=== PATIENT | male | born 1970 | race Caucasian/White ===

== ENCOUNTER → 2018-12-26 | Outpatient (CLI) | payer OTHER, SELFPAY ==
--- NOTE | 2018-12-26 15:20 | RAD_ITS ---
STUDY: X-RAY - LUMBAR SPINE REASON FOR EXAM: Male, 48 years old. Back pain TECHNIQUE: 4 view(s) of the lumbar spine were obtained. COMPARISON: 15 July 2015 FINDINGS: Lumbar spine is aligned. Incomplete segmentation of T11-T12. This questionable loss of height of central L1. However, this area is partially obscured and the vertebral bodies difficult to visualize. There is superior concave deformity of the L2 and L3 endplates, likely chronic degenerative. There is no acute fracture. SI joints are normal. RAD/L/S Spine Min 4 Views IMPRESSION: Possible degenerative changes and/or compressive deformity of L1. Difficult to characterize. Recommend definitive assessment with CT Electronically Signed: Tiana William, at 16:17 EDT Tel , Service support ,
--- NOTE | 2018-12-26 15:21 | RAD_ITS ---
STUDY: X-RAY - RIGHT KNEE REASON FOR EXAM: Male, 48 years old. Pain TECHNIQUE: 4 view(s) of the knee. COMPARISON: None. FINDINGS: Normal visualized distal femur. Normal visualized proximal tibia and fibula. Normal proximal tibiofibular articulation. Normal medial femorotibial compartment. Normal lateral femorotibial compartment. Normal patellofemoral articulation. The soft tissue structures are unremarkable. RAD/Knee 4 or More Views IMPRESSION: Normal x-ray examination of the knee. Electronically Signed: Tiana William, at 16:07 EDT Tel , Service support ,
--- NOTE | 2018-12-26 15:22 | RAD_ITS ---
STUDY: X-RAY - LEFT KNEE REASON FOR EXAM: Male, 48 years old. Pain TECHNIQUE: 4 view(s) of the knee. COMPARISON: None. FINDINGS: Normal visualized distal femur. Normal visualized proximal tibia and fibula. Normal proximal tibiofibular articulation. Normal medial femorotibial compartment. Normal lateral femorotibial compartment. Normal patellofemoral articulation. The soft tissue structures are unremarkable. RAD/Knee 4 or More Views IMPRESSION: Normal x-ray examination of the knee. Electronically Signed: Tiana William, at 16:04 EDT Tel , Service support ,
== END | disposition home or self-care (01) ==
LOC: HPRAD 15:16
PROVIDERS: Family Provider Internal Medicine; PCP Internal Medicine; Referring Provider Internal Medicine; Visit Provider Internal Medicine
DX: M25.50 Pain in unspecified joint (principal)
CPT/HCPCS: 72110; 73564

== ENCOUNTER → 2019-01-05 | Outpatient (CLI) | payer OTHER, SELFPAY ==
--- NOTE | 2019-01-05 07:58 | CT_ITS ---
STUDY: CT LUMBAR SPINE WITHOUT CONTRAST REASON FOR EXAM: Male, 48 years old. Low back pain with sciatica RADIATION DOSAGE (If Supplied By Facility): CTDIvol = ( 14.17 ) mGy, DLP = ( 415.41 ) mGycm TECHNIQUE: The patient was scanned in a multi detector CT scanner. High resolution transaxial imaging was performed. Sagittal and coronal images were reconstructed. Individualized dose optimization techniques were used for this CT. COMPARISON: None FINDINGS: Normal lumbar lordosis. No focal listhesis or significant scoliosis. No vertebral body fracture. No pars defect. Transverse and spinous processes are intact. Intervertebral disc spaces are preserved. Facet joints are normal. Normal vertebrae of the lumbar spine. L1-2: Normal endplates. Normal disc height and morphology. Normal bilateral facet joints. Normal central canal and bilateral lateral recesses. Normal bilateral intervertebral neural foramina. L2-3: Normal endplates. Normal disc height and morphology. Normal bilateral facet joints. Normal central canal and bilateral lateral recesses. Normal bilateral intervertebral neural foramina. L3-4: Normal endplates. Normal disc height and morphology. Normal bilateral facet joints. Normal central canal and bilateral lateral recesses. Normal bilateral intervertebral neural foramina. L4-5: Normal endplates. Mild diffuse disc bulge. Mild ligamentum flavum thickening. No neural foraminal canal narrowing. Mild spinal canal stenosis. L5-S1: Normal endplates. Normal disc height and morphology. Normal bilateral facet joints. Normal central canal and bilateral lateral recesses. Normal bilateral intervertebral neural foramina. Normal visualized paraspinous soft tissue structures. CT/Spine Lumbar without Contrast IMPRESSION: 1. No evidence of acute injury to the lumbar spine. 2. Mild degenerative disc disease at L4-L5, resulting in mild spinal canal stenosis Electronically Signed: Bradley Andujar MD at 4:55 EDT Tel , Service support ,
--- NOTE | 2019-01-05 07:59 | RAD_ITS ---
STUDY: X-RAY - ESOPHAGUS (BARIUM SWALLOW) WITH FLUOROSCOPY REASON FOR EXAM: Male, 48 years old. Chronic dysphasia. TECHNIQUE: 11 view(s) of the esophagus were obtained following swallowing of barium. FLUOROSCOPY TIME (if supplied): (0:22) minutes/seconds COMPARISON: None. FINDINGS: There is no demonstrated esophageal foreign body. There is no demonstrated stricture or mucosal abnormality. Normal gastroesophageal junction, without a demonstrated hiatal hernia. The patient ingested a 12 mm tablet of barium without any difficulty. Normal visualized aortic arch and descending thoracic aorta. Normal visualized pulmonary parenchyma. Normal visualized osseous structures of the thorax. RAD/Esophagus Only IMPRESSION: Normal plain film x-ray examination (barium swallow) of the esophagus. Electronically Signed: Gt Jasmine, at 12:55 EDT , Service support ,
== END | disposition home or self-care (01) ==
PROVIDERS: Family Provider Internal Medicine; PCP Internal Medicine; Referring Provider Internal Medicine; Visit Provider Internal Medicine
DX: R13.10 Dysphagia, unspecified (principal); R93.7 Abnormal findings on diagnostic imaging of other parts of musculoskeletal system
CPT/HCPCS: 72131; 74220

== ENCOUNTER → 2019-02-10 | Outpatient (CLI) | payer OTHER, SELFPAY ==
[2018-01-11 12:40] VITALS: BMI 27.8
--- NOTE | 2019-02-10 10:44 | EGD_PTH ---
PATIENT: HAROLDO ALMEIDA LOC: [facility] U#:[id number] AGE/SX: 48/M ROOM: RE02/10/[address]: Dr. Sam Lam MD : 1970 BED: DIS: 02/10/2019 SPEC #: [id number] RECD: 02/10/19 15:22 STATUS: PIERRE MICHELE #: [id number] LINDSAY: 02/10/19 10:[address]: Sam Lam DEPT: SURGICAL PATHOLOGY RECD BY: Arlin Quezada ENTERED: 02/13/19 08:36 SP TYPE: EGD BIOPSY OT DR: Dr. Omaira Goldberg [facility] Tissues: Esophageal mucous membrane Procedures: PAS Fungus (control) Special Stain Group II Special Stain Group I Surgery Specimen Level IV Alcian Blue/PAS (control) HEADER OPERATION: EGD with biopsies PRE-OP DIAGNOSIS: Dysphagia TISSUE SUBMITTED: Esophageal biopsies, rule out Ahuja's, EE MICROSCOPIC DIAGNOSIS Esophageal biopsy: Fragments of gastroesophageal mucosa with ulceration, acute and chronic inflammation and changes consistent with eosinophilic esophagitis. Intestinal metaplasia (goblet cell metaplasia) is not identified. Special stain for fungi is negative for organisms; matched control is appropriate. See comment. BEAU:raheel 02/14/19 COMMENT Alcian blue/PAS stain with matched control is used in the evaluation of the specimen. Increased number of eosinophils (more than 20 per high power field) are noted, consistent with eosinophilic esophagitis. MICROSCOPIC DESCRIPTION Slides are reviewed. GROSS DESCRIPTION Received in fixative is one container labeled with the patient's name and designated esophageal biopsy. The specimen consists of multiple irregular fragments of light roman soft tissue that in aggregate measure 1.2 x 0.5 x 0.1 cm. The specimen is totally submitted in one cassette. / BEAU:raheel 02/13/19 TC:2 CPT: 30236, 26473, 97174
== END | disposition home or self-care (01) ==
LOC: LABSPEC 15:40
PROVIDERS: Family Provider Internal Medicine; PCP Internal Medicine; Referring Provider Internal Medicine Gastroenterology; Visit Provider Internal Medicine Gastroenterology
DX: R13.10 Dysphagia, unspecified (principal); K21.9 Gastro-esophageal reflux disease without esophagitis
CPT/HCPCS: 88305; 88312; 88313

== ENCOUNTER → 2019-04-03 | Outpatient (CLI) | payer OTHER, SELFPAY ==
--- NOTE | 2019-04-03 15:27 | RAD_ITS ---
STUDY: X-RAY CHEST REASON FOR EXAM: Male, 48 years old. Cough, shortness of breath TECHNIQUE: PA and lateral views of the chest. COMPARISON: None. FINDINGS: The lungs are clear and expanded. There is no demonstrated pleural abnormality. Normal size heart. Normal mediastinum and dahiana. Normal visualized pulmonary arteries. Normal visualized aortic arch and descending thoracic aorta. Normal visualized thoracic spine. Normal visualized ribs, clavicles, and shoulders. There is no demonstrated abnormality of the visualized soft tissue structures of the upper abdomen. RAD/Chest PA and Lateral IMPRESSION: Normal x-ray examination of the chest. Electronically Signed: Jignesh Villalpando MD at 15:54 EDT Tel , Service support ,
== END | disposition home or self-care (01) ==
LOC: HPRAD 15:20
PROVIDERS: Family Provider Internal Medicine; PCP Internal Medicine; Referring Provider Nurse Practitioner; Visit Provider Nurse Practitioner
DX: R05 Cough (principal)
CPT/HCPCS: 71046

== ENCOUNTER 2024-12-05 18:00 | Outpatient (RCR) | payer BC, SELFPAY ==
--- NOTE | 2024-11-16 18:50 | HP.PTEVAL ---
Patient's Visit Information Visit Information Visit Information: HAROLDO ALMEIDA is a 54 year old M referred to Physical Therapy by Dr. Omaira Goldberg DO with a diagnosis of cervical radiculopathy. Date of Evaluation: 11/16/24 Physical Therapist: Cleveland Matos, DPT, OCS, CSCS Visit Plan Frequency: 2x /Week Duration: 4-6 Weeks Plan: Pt presenting without obvious reason or cause. some neck stiffness but no pain or asymmetrical limitations. Numbness consistent with ulnar nerve at elbow but no pattern noticed by patient. I gave him cervical flexion 15x 5 secon hold 3x/day and throughout day as well as to stop when he gets numb and try to notice a pattern. We will f/u in two weeks to recheck presentation and see if there is a pattern. MRI pending and appropriate. may treat up to 2x/week for 2-4 weeks if needed with cervical stretches and ROM(flexion bias), STM, MH, and cervical postural strength if helpful. Pt is wanting answers today that I cannot give him and looking forward to MRI. He is to monitor for any other symptoms that might need to take him to ER(dizzy/RAMIREZ) but has not had any lately outside of the arm numbness and that is not creating any funcitonal deficits at this point. Subjective Subjective: L arm numbness, no other symptoms. Happened 6 months ago one time and went away. 3 weeks ago it came back with RAMIREZ and sweating and sent to ER but did not go. It is still numb. Went to doctor last week for the arm numbness. Neck x ray was negative adn slight OA. Did blood work adn urine samples and no results yet. Ordered MRI but not heard yet. Numbness is intermittent. For no apparent reason, 60% numb. 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 Missed a couple days due to doctoring . 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 Not noticing weaknessNumbness is 45 digits only. Objective Objective: reflexes bi adn tri 2/3 UT mild tight as are scalenes, no pain. sensataion UE WNL to gross light touch B. strength UE 4+/5 without myotomal probems, B manager global communications about 160#. Hand intrinsics are strong. UE AROM WFL and without pain or numbness. cervical aROM 50 ext wihtout pain, 78 R rotationa dn 80 L rotation with symptoms. SB symmetrical, flexion normal. - c/s compression tinels makes both sides tingle equally, nerve stretch ulnar causes tightness mid arm L and wrist R Repeated retraction adn ext and protrusion have no change to nonexistent symptoms sitting in chair today. Balance/Special Test Scores Oswestry Neck Score: 1 Goals Goal 1:: abolish tingly numb in L UE Goal Time Frame: 4-6 Weeks Rehabilitation Potential Physical Therapy Diagnosis: tingly R arm elbow down intermittent of unknown origin. Rehabilitation Potential: Questionable Anticipated Interventions Patient/Client Instruction: Educate patient on: Condition and Plan of Care For the Purpose of:: To decrease pain, To increase ROM, To improve nutrient delivery to tissue, To improve muscle performance and motor function and To increase tolerance to activity/condition/position Therapeutic Exercise to Include: Strength training, Postural training, Flexibilty training, Passive ROM and Active ROM For the Purpose of:: To decrease pain, To increase ROM, To improve nutrient delivery to tissue, To increase tolerance to activity/condition/position and To improve ability of physical actions for home/community/work/leisure Manual Therapy Techniques to Include: Passive ROM and Soft tissue mobilization For the Purpose of:: To decrease pain and To increase ROM Text: Thank you for the opportunity to evaluate your patient. For Medicare and Medicare HMO plans, please review the plan of care and approve it. It will need to be FAXED BACK to us at [phone] for Medicare purposes. For Medicare only, by signing this I certify the plan of care. Please let me know if there are questions or concerns regarding this plan of care. Physician Signature: Date:
--- NOTE | 2024-12-19 10:40 | HP.PTDCSUM_ITS ---
Discharge Summary D/C summary: It has been my pleasure to treat HAROLDO ALMEIDA referred by Dr. Omaira Goldberg DO, with the diagnosis of cervical radiculopathy for a total of 2 visit(s). Discharge Date: 12/19/24 Please see the following information for a summary of their discharge status. Subjective Subjective: No MRI yet, failed to go through so far. Numbness persists L hand 4/5 digit. Worse with holding a wrench or steering wheel, feels better with hand extended and worse using wrench or clenching. Tried cervical flexion and extension without improvement but no neck signs to begin with. No other symptoms. Overall Improvement % Improvement: 0 Objective Objective/Function: Full neck ROM to 80 B rotation and 16 SB and 75 extension without pain or dysfunction in neck or change to numbness. + tinels' at L ulnar nerve in elbow and that recreates his numbness. elbow and wrist and shoulder AROM WFL and no obvious weakness. Goals Goal 1:: abolish tingly numb in L UE Plan Plan: Pt stopped in to cancel all appointments as he is holding on PT currently due to having a procedure on his neck(message from front office director) I will discharge him at this time at his request. D/C Information Discharge Comments: see POC above. d/c sentence: If there are questions or concerns regarding this patient's physical therapy, please feel free to call me at [phone]. Thank you for the referral of this patient. Sincerely, Cleveland Matos, DPT, OCS, CSCS Balance/Gait/Functional tests Balance/Special Test Scores Oswestry Neck Score: 1 Improvement % Improvement: 0
--- NOTE | 2024-12-19 10:40 | HP.PTDCSUM_ITS ---
Discharge Summary D/C summary: It has been my pleasure to treat HAROLDO ALMEIDA referred by Dr. Omaira Goldberg DO, with the diagnosis of cervical radiculopathy for a total of 2 visit(s). Discharge Date: 12/19/24 Please see the following information for a summary of their discharge status. Subjective Subjective: No MRI yet, failed to go through so far. Numbness persists L hand 4/5 digit. Worse with holding a wrench or steering wheel, feels better with hand extended and worse using wrench or clenching. Tried cervical flexion and extension without improvement but no neck signs to begin with. No other symptoms. Overall Improvement % Improvement: 0 Objective Objective/Function: Full neck ROM to 80 B rotation and 16 SB and 75 extension without pain or dysfunction in neck or change to numbness. + tinels' at L ulnar nerve in elbow and that recreates his numbness. elbow and wrist and shoulder AROM WFL and no obvious weakness. Goals Goal 1:: abolish tingly numb in L UE Plan Plan: Pt stopped in to cancel all appointments as he is holding on PT currently due to having a procedure on his neck(message from front desk administrator) I will discharge him at this time at his request. D/C Information Discharge Comments: see POC above. d/c sentence: If there are questions or concerns regarding this patient's physical therapy, please feel free to call me at [phone]. Thank you for the referral of this patient. Sincerely, Cleveland Matos, DPT, OCS, CSCS Balance/Gait/Functional tests Balance/Special Test Scores Oswestry Neck Score: 1 Improvement % Improvement: 0
== END 2024-12-05 19:00 | disposition home or self-care (01) ==
LOC: PT 18:00
PROVIDERS: PCP Internal Medicine; Referring Provider Internal Medicine; Visit Provider Internal Medicine
DX: M54.2 Cervicalgia (principal); M54.10 Radiculopathy, site unspecified
CPT/HCPCS: 97162; 97530

== ENCOUNTER → 2025-01-22 | Outpatient (CLI) | payer BC, SELFPAY ==
--- NOTE | 2025-01-22 07:20 | MRI_ITS ---
PROCEDURE: BRAIN WITHOUT CONTRAST 01/22/2025 REASON FOR EXAM: DIZZINESS,LT ARM NUMBNESS, MINOR HEAD TRAUMA TECHNIQUE: Multiplanar and multisequential MRI of the brain was performed without contrast. COMPARISON: None available. FINDINGS: Ventricular and sulcal size and configuration are within normal limits. Small regions of cortical/subcortical T2 FLAIR hyperintense signal abnormality in the posterolateral right occipital lobe, indeterminate but likely mild gliotic change which may be related to traumatic brain injury such as mild parenchymal contusions, versus subacute-chronic ischemia. No abnormal restricted diffusion, and no susceptibility signal to indicate hemorrhage. No extra-axial collection or mass-effect. There are a few additional scattered small foci of T2 FLAIR hyperintensity elsewhere in the cerebral white matter, and one focus in the right cerebellar hemisphere which are nonspecific but likely reflective of mild chronic microangiopathic changes. Major intracranial vascular flow voids are preserved. Orbital contents appear normal. No mastoid effusions. Peripheral mucosal thickening within the right frontal sinus and anterior ethmoids, and small right maxillary mucous retention cyst/polyp. MRI/Brain without Contrast IMPRESSION: 1. No acute intracranial abnormality. 2. Small areas of cortical/subcortical T2 FLAIR hyperintensity in the right occ ipital lobe, likely nonspecific gliotic change and may be sequelae of previous traumatic brain injury, or possibly related to suba cute-chronic ischemia. No hemorrhage. 3. Mild scattered foci of leukoaraiosis elsewhere, with one focus in the right cerebellum. Reading Location: [id number]
== END | disposition home or self-care (01) ==
PROVIDERS: PCP Internal Medicine; Referring Provider Internal Medicine; Visit Provider Internal Medicine
DX: R20.0 Anesthesia of skin (principal); R42 Dizziness and giddiness
CPT/HCPCS: 70551

== ENCOUNTER → 2025-01-31 | Outpatient (CLI) | payer BC, SELFPAY ==
--- NOTE | 2025-01-31 14:37 | NEURO ---
NCS and/or EMG Patient Report Ordering Doctor: Omaira Goldberg DATE OF SERVICE: 01/31/25 Bharat presents with complaints of numbness in the left hand. Electrodiagnostic findings: Left median motor nerve demonstrates prolonged latency with normal amplitude and conduction velocity. Left ulnar motor response is within normal limits, including conduction across the elbow. Normal left median and left ulnar F?wave. Prolonged left median sensory latency at the wrist. Normal ulnar and radial sensory responses. Needle EMG testing was performed in the left upper limb. All muscles tested showed no evidence of denervation with normal motor unit action potentials. Electrodiagnostic impression: This is an abnormal study. 1. Electrodiagnostic findings suggestive of left-sided median mononeuropathy. This consistent with a mild left carpal tunnel syndrome. Multi Select Codes Neurology Neurology Interp Codes: 80845-40 Musc test done w/n test comp (interp) and 72499-55 Nrv cndj tst 5-6 studies (interp)
--- NOTE | 2025-01-31 14:37 | NEURO ---
NCS and/or EMG Patient Report Ordering Doctor: Omaira Goldberg DATE OF SERVICE: 01/31/25 Bharat presents with complaints of numbness in the left hand. Electrodiagnostic findings: Left median motor nerve demonstrates prolonged latency with normal amplitude and conduction velocity. Left ulnar motor response is within normal limits, including conduction across the elbow. Normal left median and left ulnar F?wave. Prolonged left median sensory latency at the wrist. Normal ulnar and radial sensory responses. Needle EMG testing was performed in the left upper limb. All muscles tested showed no evidence of denervation with normal motor unit action potentials. Electrodiagnostic impression: This is an abnormal study. 1. Electrodiagnostic findings suggestive of left-sided median mononeuropathy. This consistent with a mild left carpal tunnel syndrome. Multi Select Codes Neurology Neurology Interp Codes: 89150-48 Musc test done w/n test comp (interp) and 06471-65 Nrv cndj tst 5-6 studies (interp)
== END | disposition home or self-care (01) ==
PROVIDERS: PCP Internal Medicine; Referring Provider Internal Medicine; Visit Provider Internal Medicine
DX: R20.0 Anesthesia of skin (principal)
CPT/HCPCS: 95886; 95909

== ENCOUNTER 2025-06-18 10:11 | Observation (INO) | payer BC, SELFPAY ==
[2025-06-18] VITALS (11 sets, daily range): BP systolic 121–150; BP diastolic 85–96; PULSE 62–81; RESP 12–18; TEMP 36.4–36.8; O2SAT 95–100; BMI 28.1; BMI 28.0
--- NOTE | 2025-06-18 10:16 | CT_ITS ---
PROCEDURE: STROKE BRAIN/HEAD WITHOUT CONT 06/18/2025 REASON FOR EXAM: NEURO DEFICIT, ACUTE, STROKE SUSPECTED TECHNIQUE: Procedure Code: CTBR.ST Modality: CT Procedure: STROKE BRAIN/HEAD WITHOUT CONT Coronal and Sagittal reconstruction series were provided. One or more dose reduction techniques were used (e.g., Automated exposure control, adjustment of the mA and/or kV according to patient size, use of iterative reconstruction technique. RADIATION DOSE SUMMARY: CTDlvol: 94 mGy DLP: 1851 mGycm COMPARISON: January 22, 2025 FINDINGS: Brain: There is no evidence of hemorrhage, acute ischemia or mass. No extra- axial fluid collection, midline shift or mass effect. CSF Spaces: Mild generalized cerebral atrophy Sinuses/Mastoids: Small mucous retention cyst or polyp inferior right maxillary sinus. Bones: No fracture CT/STROKE Brain/Head without Cont IMPRESSION: No evidence of acute ischemia at this time. Stroke Alert: No evidence of ischemia. The critical findings in the findings and impression above were relayed directl y by me by telephone to charge nurse on 06/18/2025 at 10:34 am with readback verification. Reading Location: [id number]
--- NOTE | 2025-06-18 10:16 | EKG12_ITS ---
Test Reason : Blood Pressure : */* mmHG Vent. Rate : 71 BPM Atrial Rate : 71 BPM P-R Int : 164 ms QRS Dur : 90 ms QT Int : 400 ms P-R-T Axes : 30 -38 7 degrees QTcB Int : 434 ms Normal sinus rhythm Left axis deviation Abnormal ECG Confirmed by Jose Chan (Tracee), editor managing newspaper MAHENDRA HAHN ([id number]) on 06/19/2025 11:02:37 AM Also confirmed by Jose Chan ([id number]), editor managing newspaper MAHENDRA HAHN ([id number]) on 06/20/2025 11:12:13 AM Referred By: BUBBA Confirmed By: Jose Chan
--- NOTE | 2025-06-18 10:17 | CT_ITS ---
PROCEDURE: STROKE CTA HEAD AND NECK W/CON 06/18/2025 REASON FOR EXAM: NEURO DEFICIT, ACUTE, STROKE SUSPECTED TECHNIQUE: Procedure Code: CTCTA.ST.HN Modality: CT Procedure: STROKE CTA HEAD AND NECK W/CON Multidetector CT angiography of the head and neck with intravenous contrast was performed with multiplaner and maximum intensity projection (MIP) reconstructions. CONTRAST: Isovue 370 VOLUME: 96 mL One or more dose reduction techniques were used (e.g., Automated exposure control, adjustment of the mA and/or kV according to patient size, use of iterative reconstruction technique). RADIATION DOSE SUMMARY: DLP: 934.69 mGycm COMPARISON: None available. FINDINGS: CTA NECK: Standard three-vessel configuration of the aortic arch. The origins of the vessels arising from the aortic arch are patent without high-grade stenosis. Right carotid artery: The right common carotid artery is patent without high- grade stenosis. Atheromatous plaque at the carotid bulb contributes to 35-40% stenosis at the origin of the right cervical internal carotid artery. The right cervical internal carotid artery is otherwise patent without hemodynamically significant stenosis. Left carotid artery: The left common carotid artery is patent without high-grade stenosis. Atherosclerotic calcification at the origin of the left cervical internal carotid artery without significant stenosis. The left cervical internal carotid artery is patent without hemodynamically significant stenosis. Cervical vertebral arteries: The cervical vertebral arteries are patent without high-grade stenosis. Assessment for carotid stenosis is performed utilizing NASCET criteria. NASCET carotid stenosis criteria: 0% - none, 1-49% - mild, 50-69% - moderate, 70-89% - severe, 90-99% - critical. % ICA stenosis = (normal distal cervical ICA diameter - narrowest cervical ICA diameter / normal distal cervical ICA diameter) x 100. CTA Head: Atherosclerotic calcification of the cavernous carotid arteries. The petrous, cavernous, and intracranial internal carotid arteries are patent without high-grade stenosis. The proximal anterior cerebral arteries are patent without high-grade stenosis. The proximal middle cerebral arteries are patent without high-grade stenosis. The intradural vertebral arteries are patent without high-grade stenosis. The basilar artery is patent without high-grade stenosis. The proximal posterior cerebral arteries are patent without high-grade stenosis. No dominant intracranial aneurysm or high flow arteriovenous malformation is identified. Ancillary findings: None. CT/STROKE CTA Head AND Neck W/Con IMPRESSION: 1. No high-grade arterial stenosis, aneurysm, or arteriovenous malformation. 2. Mild spinal canal stenosis at the origin of the right cervical internal escalante tid artery. Reading Location: [id number]
--- NOTE | 2025-06-18 10:17 | ED.VIS.STROK ---
HPI History of Present Illness Chief Complaint: Stroke Alert Narrative Narrative: Patient is a 54-year-old male presenting to the emergency department for dizziness and right sided facial numbness. Patient has a past medical history of nonspecific dizziness and a possible CVA. Patient states that at 9 PM last evening when he went to bed he had no symptoms. He states he woke up at 2 AM and was dizzy and had to use the wall to walk to the restroom. He states when he is have the dizziness in the past that has come and gone however today it is constant. He endorses right sided facial numbness. Denies any visual changes, slurred speech, numbness or weakness in his extremities. Denies any recent falls or head trauma. He is not on any oral anticoagulation. [facility] Medical History GERD with esophagitis Vitamin B12 deficiency Vitamin D deficiency Hyperlipidemia Carpal tunnel syndrome of left wrist Leukoaraiosis Cerebrovascular small vessel disease Allergic rhinitis Eosinophilic esophagitis Irritable bowel syndrome with diarrhea Hemorrhoid Arthralgia of multiple sites Degenerative lumbar spinal stenosis Cervical radiculopathy Cervical pain Back pain, lumbosacral Left tennis elbow Kidney stone on right side Elevated blood pressure reading Low blood pressure reading Cough Witnessed episode of apnea Dysphagia Left arm numbness Fatigue Abnormal glucose tolerance test Hyperglycemia Food allergy GERD (gastroesophageal reflux disease) Thrombosed hemorrhoids Home Medications ?Medication ?Instructions ?Recorded ?Last Taken ?Type aspirin 81 mg tablet 81 mg PO DAILY 06/18/25 06/18/25 History lisinopril 5 mg tablet 5 mg PO PRN 06/18/25 Unknown History Allergy/AdvReac Type Severity Reaction Status Date / Time No Known Allergies Allergy Verified 06/18/25 10:13 Family History Father Heart disease Myocardial infarction CVA (cerebral vascular accident) Mother Hypertension Dementia Surgical History No pertinent past surgical history Social History household members: other details: parents current occupational status: employed 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 No acute distress. Well appearing, nontoxic. HEENT: Head is normocephalic and atraumatic, sinuses nontender, pupils equal round and reactive. Nares are patent. Oropharynx and throat exams normal. Neck: Supple without lymphadenopathy nontender Cardiovascular: Regular rate and rhythm, no murmurs. No rubs or gallops. Normal S1 and S2 Respiratory: Clear to auscultation bilaterally. No wheezes, rales, rhonchi Abdominal: Soft and nontender. Normal bowel sounds. No guarding or rebound. Nonsurgical abdomen Extremities: No tenderness. No bruising. Normal range of motion. Normal sensation. Skin: No rash or redness. Neurologic: Normal finger to nose testing. Ataxic gait. The rest of the physical exam is unremarkable Const Vital Signs: 06/18/25 10:13 06/18/25 10:16 06/18/25 10:16 Temperature 97.8 F Temperature Source Temporal Pulse Rate 80 81 Respiratory Rate 16 14 Blood Pressure 150/93 H 136/89 H Blood Pressure Mean 112 104 Pulse Ox 97 98 100 Oxygen Delivery Method Room Air Room Air Room Air 06/18/25 10:46 06/18/25 11:16 06/18/25 11:50 Temperature Temperature Source Pulse Rate 78 68 69 Respiratory Rate 17 15 14 Blood Pressure 139/85 H 138/87 H 121/94 H Blood Pressure Mean 103 104 103 Pulse Ox 98 98 97 Oxygen Delivery Method Room Air Room Air Room Air 06/18/25 11:59 06/18/25 12:03 Temperature 97.8 F Temperature Source Pulse Rate 69 66 Respiratory Rate 14 12 Blood Pressure 121/94 H 131/96 H Blood Pressure Mean 103 107 Pulse Ox 97 99 Oxygen Delivery Method Room Air MDM MDM MDM Narrative Medical decision making narrative: Patient is a 54-year-old male presenting to the emergency department for dizziness and right sided facial numbness with a last known well of 9 PM last evening. He is on no oral anticoagulation. Stroke team was called in triage by nursing staff prior to my evaluation. On my evaluation patient has an NIH of 1 for the sensation deficit on his right sided face. Patient transferred to CT for CT and CTA of the head and neck. Patient was evaluated by [facility] telestroke doc, Dr. Pako Pascual, who agreed with the assessment and recommended aspirin and admission for MRI and neurologic consultation. EKG shows normal sinus rhythm with left axis deviation. There is no ischemic changes or dysrhythmia noted. CBC with no leukocytosis and hemoglobin is 16.9. BMP with no significant abnormalities. Troponin and reflex within normal limits. CT of the brain with no evidence of acute ischemia. CT of the head and neck with no high-grade arterial stenosis, aneurysm or AVM. Patient updated on the negative workup and need for admission for MRI. Given oral aspirin. Admitted to Dr. Rehman for further workup of possible stroke. Clinical impression Strokelike symptoms History & Record Review Discussion w/independent historian: Patient Lab Data Attestation: I reviewed the patient's lab results. Labs: Laboratory Results - last 24 hr 06/18/25 06/18/25 10:16 12:13 WBC 7.2 RBC 5.48 Hgb 16.9 H Hct 50.6 MCV 92.3 MCH 30.8 MCHC 33.4 RDW Std Deviation 45.3 H RDW Coeff of Stephen 13.3 Plt Count 559 H MPV 9.6 Immature Gran % (Auto) 0.700 Neut % (Auto) 60.7 Lymph % (Auto) 24.9 [place] % (Auto) 9.0 Eos % (Auto) 3.5 Baso % (Auto) 1.2 H Absolute Neuts (auto) 4.4 Absolute Lymphs (auto) 1.80 Nucleated RBC % 0 PT 12.4 INR 0.9 APTT 25.3 Sodium 140 Potassium 4.2 Chloride 103 Carbon Dioxide 27.2 Anion Gap 10 BUN 14 Creatinine 1.00 Estim Creat Clear Calc 101.79 Est GFR (MDRD) Non-Af 90 BUN/Creatinine Ratio 14.0 Glucose 102 H Calcium 9.7 Troponin T High Sens 7 Troponin T Hi Sens 2 Hr 8 Radiography Diagnostic Testing: Clinical Impression(s) from Imaging Studies Brain CT 06/18/25 10:16 IMPRESSION: No evidence of acute ischemia at this time. Stroke Alert: No evidence of ischemia. The critical findings in the findings and impression above were relayed directly by me by telephone to charge nurse on 06/18/2025 at 10:34 am with readback verification. Reading Location: [id number] Head/Neck CTA 06/18/25 10:17 IMPRESSION: 1. No high-grade arterial stenosis, aneurysm, or arteriovenous malformation. 2. Mild spinal canal stenosis at the origin of the right cervical internal carotid artery. Reading Location: [id number] Discharge Plan Disposition Disposition: Acute Care Hospital [facility] Discharge Date/Time: 06/18/25 12:35 NIHSS NIHSS 1a. Level of Consciousness: 0 - Alert; keenly responsive 1b. LOC Questions: 0 - Answers BOTH questions correctly 1c. LOC Commands: 0 - Performs BOTH tasks correctly 2. Best Gaze: 0 - Normal 3. Visual: 0 - No visual loss 4. Facial Palsy: 0 - Normal symmetrical movements 5a. Left Arm: 0 - No drift; arm holds 90 (or 45) degrees for full 10 seconds 5b. Right Arm: 0 - No drift; arm holds 90 (or 45) degrees for full 10 seconds 6a. Left Le - No drift; leg holds 30-degree position for full 5 seconds 6b. Right Le - No drift; leg holds 30-degree position for full 5 seconds 7. Limb Ataxia: 0 - Absent 8. Sensory: 1 - [id number]-eh-[id number] sensory loss; 9. Best Language: 0 - No aphasia; normal 10. Dysarthria: 0 - Normal 11. Extinction and Inattention: 0 - No abnormality Total: 1 Stroke Questions Stroke Team Activated: Yes Reviewed Inclusion/Exclusion criteria: Yes IV Thrombolytic Administered: No
[2025-06-18 10:28] LABS: Hematocrit 50.6 % (40-54); Hemoglobin 16.9 g/dL (13.0-16.5); Immature Granulocytes Count 0.050 X10^3/uL (0.0-0.0); Mean Corp Hgb Conc 33.4 g/dL (32-36); Mean Corpuscular Volume 92.3 fL (80-94); Mean Platelet Vol. 9.6 fl (6.2-12.0); NRBC Flagged by Analyzer 0 % (0-5); Platelet Count 559 K/mm3 (150-450); RBC Distribution Width CV 13.3 % (11.6-14.6); RBC Distribution Width SD 45.3 fl (35.1-43.9); Red Blood Count 5.48 M/mm3 (4.6-6.2); White Blood Count 7.2 K/mm3 (4.4-11.0)
[2025-06-18 10:42] LABS: Prothrombin Time (Protime)PT. 12.4 SECONDS (11.7-14.9)
[2025-06-18 10:43] LABS: Partial Thromboplast Time 25.3 Seconds (24.1-36.2)
[2025-06-18 10:56] LABS: Troponin T High Sensitivity 7 ng/L (<=22)
[2025-06-18 10:57] LABS: Anion Gap 10 (5-15); BUN 14 mg/dL (4-19); BUN/Creat Ratio 14.0 RATIO (10-20); Calcium,Total 9.7 mg/dL (7.6-11.0); Carbon Dioxide 27.2 mmol/L (21.0-32.0); Chloride 103 mmol/L (98-108); Estimated Creatinine Clearance 101.79 ml/min (50-250); Glucose 102 mg/dL (70-99); Potassium 4.2 mmol/L (3.3-5.1)
--- NOTE | 2025-06-18 12:29 | MRI_ITS ---
PROCEDURE: BRAIN WITHOUT CONTRAST 06/18/2025 REASON FOR EXAM: VERTIGO. RIGHT FACIAL PARESTHESIA TECHNIQUE: Procedure Code: MRIBR Modality: MR Procedure: BRAIN WITHOUT CONTRAST Multiplanar and multisequence images were obtained. COMPARISON: June 18, 2025 FINDINGS: Brain: Patchy foci of encephalomalacia are shown at the right inferior cerebellar hemisphere. No evidence of acute ischemia. Ventricles: Normal. Major Intracranial Vessels: Correlate with the recent CT angiogram Sinuses: Mild mucosal thickening right frontal sinus and bilateral anterior ethmoid air cells. Mastoids: Clear MRI/Brain without Contrast IMPRESSION: No acute intracranial abnormality. Small patchy foci of encephalomalacia in th e right inferior cerebellar hemisphere. This is in the absence of significant chronic microvascular ischemic changes. Correlat e with the history of cardiac dysrhythmia to evaluate for a potential prior thromboembolic source. Reading Location: [id number]
--- NOTE | 2025-06-18 12:29 | ECHOD_ITS ---
Reason For Study Reason For Study: TIA/STROKE Procedure This was a 2D Doppler, Color Flow transthoracic echocardiogram. Exam performed portable in patient room. Left Ventricle Normal LV size. Normal left ventricular thickness. The estimated ejection fraction is 60???65 %. Normal diastology for age. Right Ventricle Normal RV size. Normal systolic function. Atria The left and right atria are normal. Bubble contrast study is negative for PFO/ASD. Mitral Valve Normal mitral valve. There is no mitral valve stenosis. Trivial mitral valve insufficiency. Tricuspid Valve Normal tricuspid valve. There is no tricuspid stenosis. Trivial tricuspid valve insufficiency. Aortic Valve Trisinus/trileaflet aortic valve. There is no aortic valve stenosis. No aortic valve insufficiency. Pulmonic Valve Normal pulmonic valve. There is no pulmonic valvular stenosis. Trivial pulmonic valve insufficiency. Great Vessels Mild ascending aortic aneurysm measured at 3.7 cm. Normal sized IVC that collapses with respiration/sniff. Pericardium/Pleural No pericardial effusion. Medication Performed a rapid injection of agitated mix of 9 cc saline and 1cc air to assess for atrial septal defect. MMode/2D Measurements & Calculations LVIDd: 5.0 cm IVSd: 0.99 cm asc Aorta Diam: 3.7 cm LVIDs: 3.1 cm LVPWd: 0.86 cm RVDd: 4.0 cm FS: 37.2 % LAV(MOD-bp): 48.9 ml LVAd ap4: 31.8 cm2 LVAd ap2: 33.6 cm2 LAV(MOD-bp) Indexed: 22.6 ml/m2 LVLd ap4: 9.2 cm LVLd ap2: 9.1 cm LAV(MOD-sp2): 34.6 ml EDV(MOD-sp4): 89.0 ml EDV(MOD-sp2): 101.2 ml LAV(MOD-sp4): 55.5 ml EDV(sp4-el): 92.9 ml EDV(sp2-el): 105.5 ml LVAs ap4: 16.8 cm2 LVAs ap2: 17.5 cm2 LVLs ap4: 7.7 cm LVLs ap2: 7.3 cm ESV(MOD-sp4): 31.9 ml ESV(MOD-sp2): 36.0 ml ESV(sp4-el): 31.2 ml ESV(sp2-el): 35.6 ml EF(MOD-sp4): 64.1 % EF(MOD-sp2): 64.4 % EF(sp4-el): 66.4 % SV(MOD-sp4): 57.0 ml SV(MOD-sp2): 65.2 ml EDV(MOD-bp): 97.0 ml SI(MOD-sp4): 26.4 ml/m2 SI(MOD-sp2): 30.2 ml/m2 ESV(MOD-bp): 34.4 ml EF(MOD-bp): 64.5 % SV(sp4-el): 61.7 ml LA A4 area: 20.4 cm2 LA dimension(2D): 3.6 cm RA A4 area: 15.1 cm2 TAPSE: 1.5 cm Time Measurements MV dec time: 0.21 sec Doppler Measurements & Calculations MV E max aldair: 59.5 cm/sec Lat Peak E' Aldair: 11.6 cm/sec Med Peak E' Aldair: 10.5 cm/sec MV A max aldair: 45.0 cm/sec E/E' lat: 5.1 E/E' med: 5.7 MV E/A: 1.3 MV dec slope: 286.7 cm/sec2 PA V2 max: 110.2 cm/sec ECHO/Echo Complete Interpretation Summary The estimated ejection fraction is 60???65 %. Normal LV size. Normal left ventricular thickness. Normal diastology for age. Mild ascending aortic aneurysm measured at 3.7 cm. Bubble contrast study is negative for PFO/ASD. Ordering Physician: Cleveland Rehman Referring Physician: Omaira Goldberg Performed By: Jimmie Palmer RDCS
--- NOTE | 2025-06-18 12:30 | HP.PCM.HOS_ITS ---
[facility] - General General Date of Service: 06/18/25 Chief Complaint: vertigo. right face paresthesia. [facility] Narrative HAROLDO ALMEIDA, is a 54 M who presents with a several day history of vertigo and right facial paresthesias. Patient had received some medication to help with the dizziness recently which seem to have helped but then symptoms got worse in regards to the dizziness. Presented to the emergency room for evaluation. He had a CTA of the head and neck that was unremarkable other than mild spinal canal stenosis at the origin of the right cervical internal carotid artery. Patient was seen by neurology not felt to be a candidate for any tenecteplase or any need for transfer for clot extraction for an LVO. Patient has had similar symptoms which she has been told has had a stroke in the past. 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 Noted change in the right occipital lobe that may have been with attributable to a prior concussion. Also felt that he had ulnar neuropathy at the elbow of the left upper extremity. [ ] [facility] Medical History GERD with esophagitis Vitamin B12 deficiency Vitamin D deficiency Hyperlipidemia Carpal tunnel syndrome of left wrist Leukoaraiosis Cerebrovascular small vessel disease Allergic rhinitis Eosinophilic esophagitis Irritable bowel syndrome with diarrhea Hemorrhoid Arthralgia of multiple sites Degenerative lumbar spinal stenosis Cervical radiculopathy Cervical pain Back pain, lumbosacral Left tennis elbow Kidney stone on right side Elevated blood pressure reading Low blood pressure reading Cough Witnessed episode of apnea Dysphagia Left arm numbness Fatigue Abnormal glucose tolerance test Hyperglycemia Food allergy GERD (gastroesophageal reflux disease) Thrombosed hemorrhoids Home Medications ?Medication ?Instructions ?Recorded ?Last Taken ?Type aspirin 81 mg tablet 81 mg PO DAILY 06/18/2505/29 History lisinopril 5 mg tablet 5 mg PO PRN 06/18/25 Unknown History Allergy/AdvReac Type Severity Reaction Status Date / Time No Known Allergies Allergy Verified 06/18/25 10:13 Family History Father Heart disease Myocardial infarction CVA (cerebral vascular accident) Mother Hypertension Dementia Surgical History No pertinent past surgical history Social History household members: other details: parents current occupational status: employed 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 Patient's Goals Of Care . What would you like to achieve or improve as a result of your hospital stay?: To find out what is causing his symptoms. To have definitive answer. Vital Signs Vital Signs Vital Signs: 06/18/25 10:13 06/18/25 10:16 06/18/25 10:16 Temperature 36.6 C Temperature Source Temporal Pulse Rate 80 81 Respiratory Rate 16 14 Blood Pressure 150/93 H 136/89 H Blood Pressure Mean 112 104 Pulse Ox 97 98 100 Oxygen Delivery Method Room Air Room Air Room Air 06/18/25 10:46 06/18/25 11:16 06/18/25 11:50 Temperature Temperature Source Pulse Rate 78 68 69 Respiratory Rate 17 15 14 Blood Pressure 139/85 H 138/87 H 121/94 H Blood Pressure Mean 103 104 103 Pulse Ox 98 98 97 Oxygen Delivery Method Room Air Room Air Room Air 06/18/25 11:59 06/18/25 12:03 Temperature 36.6 C Temperature Source Pulse Rate 69 66 Respiratory Rate 14 12 Blood Pressure 121/94 H 131/96 H Blood Pressure Mean 103 107 Pulse Ox 97 99 Oxygen Delivery Method Room Air Weight Weight: 94.2 kg Body Mass Index (BMI) 28.1 Physical Exam Const alert, no apparent distress and average body habitus General Appearance: cooperative HEENT normocephalic and head/scalp atraumatic Eyes EOMs intact bilaterally Eyes Narrative: Left lateral nystagmus that fatigues after 3 beats. Neck no lymphadenopathy Neck Narrative: No thyromegaly Resp normal respiratory effort, no retractions, no use of accessory muscles and clear to auscultation bilaterally Cardio regular rate, regular rhythm, S1 normal heart sound and S2 normal heart sound GI normal to inspection, nondistended, normoactive bowel sounds, soft to palpation, non-tender, non-distended and hepatosplenomegaly Extremity normal to inspection, full ROM and no clubbing, cyanosis or edema Neuro oriented x3, CN's II-XII intact bilaterally, moves all extremities and no focal motor deficits Neuro Narrative: Sensation intact in bilateral upper and lower extremities. Diminished sensation on the right face. Sensorium / Orientation: awake, alert, oriented to person, oriented to place and oriented to time Speech: speech normal Motor Exam: strength 5/5 throughout Results Lab / Micro Data Attestation: I reviewed the patient's lab results. 06/18/25 10:16 06/18/25 10:16 Labs: Laboratory Results - last 24 hr 06/18/25 10:16: WBC 7.2, RBC 5.48, Hgb 16.9 H, Hct 50.6, MCV 92.3, MCH 30.8, MCHC 33.4, RDW Std Deviation 45.3 H, RDW Coeff of Stephen 13.3, Plt Count 559 H, MPV 9.6, Immature Gran % (Auto) 0.700, Neut % (Auto) 60.7, Lymph % (Auto) 24.9, [place] % (Auto) 9.0, Eos % (Auto) 3.5, Baso % (Auto) 1.2 H, Absolute Neuts (auto) 4.4, Absolute Lymphs (auto) 1.80, Nucleated RBC % 0, PT 12.4, INR 0.9, APTT 25.3, Sodium 140, Potassium 4.2, Chloride 103, Carbon Dioxide 27.2, Anion Gap 10, BUN 14, Creatinine 1.00, Estim Creat Clear Calc 101.79, Est GFR (MDRD) Non-Af 90, BUN/Creatinine Ratio 14.0, Glucose 102 H, Calcium 9.7, Troponin T High Sens 7 EKG Initial EKG: Attestation: I personally reviewed and interpreted this EKG as follows: Prior EKG tracings: available for review EKG Rhythm Intrepretation: Sinus Rhythm Imaging Radiology Impression Brain CT 06/18/25 10:16 IMPRESSION: No evidence of acute ischemia at this time. Stroke Alert: No evidence of ischemia. The critical findings in the findings and impression above were relayed directly by me by telephone to charge nurse on 06/18/2025 at 10:34 am with readback verification. Reading Location: [id number] Head/Neck CTA 06/18/25 10:17 IMPRESSION: 1. No high-grade arterial stenosis, aneurysm, or arteriovenous malformation. 2. Mild spinal canal stenosis at the origin of the right cervical internal carotid artery. Reading Location: [id number] Assessment & Plan Assessment/Plan (1) Dizziness, nonspecific: (2) Right facial numbness: PLAN: Plan Dizziness and right facial numbness: * Workup during this admission from the emergency room thus far has been unremarkable. Patient be brought in for further evaluation as there is concern that this could be a TIA or stroke. Patient will undergo an MRI of the brain, echocardiogram. PT OT evaluate and treat. Neurology consultation. * Will continue with aspirin for now. * Other possibilities could be a peripheral vertigo to which she will be on as needed meclizine and have physical Occupational Therapy evaluate him. Chronic medical conditions: * Hypertension: Given symptoms began several days ago, can manage his blood pressure appropriately we will continue with his lisinopril. * Tobacco abuse: Patient chews tobacco. Nicotine patch if needed VTE prophylaxis: Not indicated given observation status at this time. CODE STATUS: Verified with the patient. He wishes to be full code at this time. Patient stated that he would want a definitive answer. I told him that we will try her best to find a definitive answer but it may be more of a process of ruling out processes such as a stroke. I did try to inform him that it may not be a definitive answer but least we can potentially rule out other processes. Charges/Coding Visit Charges Inpatient E&M: 82556 Init Hosp L2
[2025-06-18 12:41] LABS: Troponin T High Sens 2 HR 8 ng/L (<=22)
[2025-06-18 14:44] LABS: Troponin T High Sens 4 HR < 6 ng/L (<=22)
[2025-06-19 03:01] VITALS: BMI 28.0
[2025-06-19 04:47] VITALS: BP 116/81; PULSE 60; RESP 18; TEMP 36.4; O2SAT 95
[2025-06-19 07:35] LABS: Cholesterol 264 mg/dL (<=200); Low Density Lipoprotein Calc. 168 mg/dL; Triglycerides 280 mg/dL; Very Low Density Lipoprotein 56 mg/dL (5-40); cholesterol:hdl ratio screen 6.18
--- NOTE | 2025-06-19 08:16 | PN.HOSP_ITS ---
Reason for Visit Chief Complaint: vertigo. right face paresthesia. Objective Data Objective Data Vital Signs: Vital Signs Temp Pulse Resp BP Pulse Ox O2 Del Method 36.4 C L 60 18 116/81 H 95 Room Air 06/19/25 04:47 06/19/25 04:47 06/19/25 04:47 06/19/25 04:47 06/19/25 04:47 06/19/25 04:52 Oxygen Delivery Method Room Air Weight: 93.7 kg Body Mass Index (BMI) 28.0 Intake & Output: Intake and Output for Last 24 Hours 06/17/25 06/18/25 06/19/25 23:59 23:59 23:59 Intake Total 440 / 440 Balance 440 / 440 Lab / Micro Data 06/18/25 10:16 06/18/25 10:16 Labs: Laboratory Results - last 24 hr 06/18/25 10:14: POC Glucose 96 06/18/25 10:16: WBC 7.2, RBC 5.48, Hgb 16.9 H, Hct 50.6, MCV 92.3, MCH 30.8, MCHC 33.4, RDW Std Deviation 45.3 H, RDW Coeff of Stephen 13.3, Plt Count 559 H, MPV 9.6, Immature Gran % (Auto) 0.700, Neut % (Auto) 60.7, Lymph % (Auto) 24.9, Bergen % (Auto) 9.0, Eos % (Auto) 3.5, Baso % (Auto) 1.2 H, Absolute Neuts (auto) 4.4, Absolute Lymphs (auto) 1.80, Nucleated RBC % 0, PT 12.4, INR 0.9, APTT 25.3, Sodium 140, Potassium 4.2, Chloride 103, Carbon Dioxide 27.2, Anion Gap 10, BUN 14, Creatinine 1.00, Estim Creat Clear Calc 101.79, Est GFR (MDRD) Non-Af 90, BUN/Creatinine Ratio 14.0, Glucose 102 H, Calcium 9.7, Troponin T High Sens 7 06/18/25 12:13: Troponin T Hi Sens 2 Hr 8 06/18/25 14:11: Troponin T Hi Sens 4Hr < 6 06/19/25 06:46: Triglycerides 280 H, Cholesterol 264 H, LDL Cholesterol, Calc 168, VLDL Cholesterol 56 H, HDL Cholesterol 43, Cholesterol/HDL Ratio 6.18 Radiography Diagnostic Testing: Radiology Impression Brain CT 06/18/25 10:16 IMPRESSION: No evidence of acute ischemia at this time. Stroke Alert: No evidence of ischemia. The critical findings in the findings and impression above were relayed directly by me by telephone to charge nurse on 06/18/2025 at 10:34 am with readback verification. Reading Location: [id number] Head/Neck CTA 06/18/25 10:17 IMPRESSION: 1. No high-grade arterial stenosis, aneurysm, or arteriovenous malformation. 2. Mild spinal canal stenosis at the origin of the right cervical internal carotid artery. Reading Location: [facility] Brain MRI 06/18/25 12:29 IMPRESSION: No acute intracranial abnormality. Small patchy foci of encephalomalacia in the right inferior cerebellar hemisphere. This is in the absence of significant chronic microvascular ischemic changes. Correlate with the history of cardiac dysrhythmia to evaluate for a potential prior thromboembolic source. Reading Location: [id number] Echocardiogram 06/18/25 12:29 Interpretation Summary The estimated ejection fraction is 60???65 %. Normal LV size. Normal left ventricular thickness. Normal diastology for age. Mild ascending aortic aneurysm measured at 3.7 cm. Bubble contrast study is negative for PFO/ASD. Ordering Physician: Cleveland Rehman Referring Physician: Omaira Goldberg Performed By: Jimmie Palmer RDCS Assessment & Plan Assessment/Plan (1) Dizziness, nonspecific: (2) Right facial numbness: PLAN: Plan Dizziness and right facial numbness: * Workup during this admission from the emergency room thus far has been unremarkable. * MRI brain showed no acute intracranial abnormality. Small patchy foci of encephalomalacia in the right inferior cerebellar hemisphere. * Echo shows an EF 60-65% * Neurology consult. * Will continue with aspirin for now. * Other possibilities could be a peripheral vertigo to which she will be on as needed meclizine and have physical Occupational Therapy evaluate him. Chronic medical conditions: * Hypertension: Given symptoms began several days ago, can manage his blood pressure appropriately we will continue with his lisinopril. * Tobacco abuse: Patient chews tobacco. Nicotine patch if needed VTE prophylaxis: Not indicated given observation status at this time. CODE STATUS: Verified with the patient. He wishes to be full code at this time. NIHSS NIHSS Nursing Documentation NIHSS Nursing Documentation: NIHSS: Ischemic Stroke/TIA Start: 06/18/25 12:41 Text: For PCU Patients: NIH and Neuro Check every 4 Status: Complete hours, PRN and with change in RN caregiver. Freq: [id number] Protocol: Activity Type Activity Date Activity User E-sign Co-sign Detail Recorded Client Recorded Date Recorded By Document 06/18/25 16:34 JAYLIN [id number] 06/18/25 16:35 JAYLIN 06/18/25 16:34 NIH Stroke Scale [NIHSS] A score of 0 is normal or asymptomatic . Total possible score is 42. Inpatient: RN or Physician to activate a stroke alert for onset of new stroke symptoms or with NIHSS increase >/= 3 points. Following change in neurological status, NIHSS will be performed per physician order or more frequently PRN. -1a. Level of Consciousness 0 - Alert; keenly responsive -1b. LOC Questions 0 - Answers BOTH questions correctly -1c. LOC Commands 0 - Performs BOTH tasks correctly -2. Best Gaze 0 - Normal -3. Visual 0 - No visual loss -4. Facial Palsy 0 - Normal symmetrical movements -5a. Left Arm 0 - No drift; arm holds 90 ( or 45) degrees for full 10 seconds -5b. Right Arm 0 - No drift; arm holds 90 ( or 45) degrees for full 10 seconds -6a. Left Leg 0 - No drift; leg holds 30- degree position for full 5 seconds -6b. Right Leg 0 - No drift; leg holds 30- degree position for full 5 seconds -7. Limb Ataxia 0 - Absent -8. Sensory 0 - Normal; no sensory loss -9. Best Language 0 - No aphasia; normal -10. Dysarthria 0 - Normal -11. Extinction and Inattention 0 - No abnormality -Total 0 Query Text:A score of 0 is normal or asymptomatic. Total possible score is 42 . ED: Notify Physician for NIHSS increase by > / = 3 points. Inpatient: RN or Physician to activate a stroke alert for NIHSS increase of > / = 3 points. Coma Scale [Assess] -Eye Opening Spontaneous -Motor Obeys Commands -Verbal Oriented [Total] -Coma Scale Total 15
[2025-06-19 09:53] VITALS: BP 132/83; PULSE 72; RESP 16; TEMP 37.2; O2SAT 96
[2025-06-19 10:18] VITALS: BMI 28.0
[2025-06-19 13:00] VITALS: BMI 28.0
--- NOTE | 2025-06-19 14:22 | CON.PCM.NE_ITS ---
Assessment and Plan: Neuro Assessment/Plan HAROLDO ALMEIDA is a 54 M with a past medical history of prior vertigo, vitamine deficiency being evaluated by Teleneurology for sudden vertigo that is improving with meclizine. history consistent with sudden onset with no provoking factors, out of sleep with improvement consistent with BPPV vs stroke and imaging without acute abnormality. MRI Brain benign except for known R occipital and cerebellar lesions but R cerebellar lesion may be larger vs artifact. There is still no evidence of acute stroke and the clinical course does not suggest a gradual indolent process. Diagnosis: BPPV Plan: - PRN meclizine - vestibular therapy as outpatient - recommend MRI Brain w/wo contrast in 3 months as the R cerebellar lesion appears slightly bigger than the mri in 7 months but unclear if that is just the cut on MRI. I personally attended this patient and spent a total time of 45minutes evaluating this patient including clinical assessment, review of chart, medical history imaging, and determining appropriate treatment and workup. HPI Consult Data Date of Consult: 06/19/25 HPI Narrative HPI Narrative: HAROLDO ALMEIDA, is a 54 M who presents with a several day history of vertigo and right facial paresthesias. Patient had received some medication to help with the dizziness recently which seem to have helped but then symptoms got worse in regards to the dizziness. Presented to the emergency room for evaluation. He had a CTA of the head and neck that was unremarkable other than mild spinal canal stenosis at the origin of the right cervical internal carotid artery. Patient was seen by neurology not felt to be a candidate for any tenecteplase or any need for transfer for clot extraction for an LVO. Patient has had similar symptoms which she has been told has had a stroke in the past. 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 Noted change in the right occipital lobe that may have been with attributable to a prior concussion. Also felt that he had ulnar neuropathy at the elbow of the left upper extremity. Neurologic History Patient states he is doing ok until he stands up. Something similar happened in the spring for 5-6 hrs. The facial numbness on the R. Feels like dysequilibrium. R facial tingling and numbness and facial pressure but no headache. Pt woke up with symptoms and was really dizzy, tried to go to sleep and then woke up again and symptoms were still there. The symptoms are a little better today than before. He was able to drive to the hospital without issues. Symptoms only start when he is standing. Pt got a COVID vaccine back in 2019. Exam -? General: Laying comfortably in bed; in no acute distress. -? HENT: Normal oropharynx and mucosa. Normal external appearance of ears and nose. Exophthalmos. -? Neck: Supple, no pain or tenderness -? CV:? No peripheral edema. -? Pulmonary:? Normal respiratory effort. -? Ext: No cyanosis, edema, or deformity -? Skin: No rash. Normal palpation of skin.? -? Musculoskeletal: full range of motion; no joint tenderness. Normal digits and nails by inspection. No clubbing. -? NEURO: -? Mental Status: The patient was alert and oriented to time, place, and person. Normal recent/remote memory, concentration, and general fund of knowledge. -? Language: speech is clear.? Naming, repetition, fluency, and comprehension intact. -? Cranial Nerves: PERRL 3mm/brisk. EOMI, visual ramos full, no facial asymmetry, facial sensation diminished LV2-3, hearing intact, tongue midline, no evidence of atrophy or fibrillations. No noted nystagmus -? Motor: normal bulk, tone, and strength throughout. No pronator drift or satelliting. Upper and lower extremities equal bilaterally. -? Detailed strength exam as performed by the nurse/KVGN and witnessed by the physician: l R L SA 5 5 EE EF 5 5 WE WF Speech Pathologist 5 5 HF 5 5 KE KF DF PF -? Tone: is normal and bulk is normal -? Sensation- Intact to light touch bilaterally -? Coordination: No dysmetria on [id number], finger follow finger or [id number]-[id number] -? Gait- Gait initiation was normal. Narrow base with good heel strike and stride length was observed during ambulation. Pt unable to walk in tandem [facility] Medical History GERD with esophagitis Vitamin B12 deficiency Vitamin D deficiency Hyperlipidemia Carpal tunnel syndrome of left wrist Leukoaraiosis Cerebrovascular small vessel disease Allergic rhinitis Eosinophilic esophagitis Irritable bowel syndrome with diarrhea Hemorrhoid Arthralgia of multiple sites Degenerative lumbar spinal stenosis Cervical radiculopathy Cervical pain Back pain, lumbosacral Left tennis elbow Kidney stone on right side Elevated blood pressure reading Low blood pressure reading Cough Witnessed episode of apnea Dysphagia Left arm numbness Fatigue Abnormal glucose tolerance test Hyperglycemia Food allergy GERD (gastroesophageal reflux disease) Thrombosed hemorrhoids Home Medications ?Medication ?Instructions ?Recorded ?Last Taken ?Type aspirin 81 mg tablet 81 mg PO DAILY 06/18/2505/29 History lisinopril 5 mg tablet 5 mg PO PRN 06/18/25 Unknown History meclizine 25 mg tablet 25 mg PO TID PRN PRN Dizzine ss #30 06/19/25 Unknown Rx (Travel-Ease (meclizine)) tabs Allergy/AdvReac Type Severity Reaction Status Date / Time No Known Allergies Allergy Verified 06/18/25 10:13 Family History Father Heart disease Myocardial infarction CVA (cerebral vascular accident) Mother Hypertension Dementia Surgical History No pertinent past surgical history Social History household members: other details: parents current occupational status: employed 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 pets and animals: Yes pets and animals: dog(s) Smoking Status: Current every day smoker tobacco type: smokeless tobacco Smokeless tobacco user: chewing tobacco alcohol intake: current alcohol intake frequency: a few times a month Alcohol type: wine substance use type: does not use caffeine: Yes Type: carbonated beverages Number of servings: 1 and coffee Number of servings: 2 do you feel safe at home: Yes Vital Signs Vital Signs Vital Signs: 06/18/25 16:32 06/18/25 20:14 06/18/25 21:55 Temperature 98.3 F Temperature Source Oral Pulse Rate 67 Pulse Strength Normal (2+) Respiratory Rate 16 Respiratory Effort Normal Non-Labored Respiratory Depth Normal Respiratory Pattern Normal Blood Pressure 124/95 H Blood Pressure Mean 104 Blood Pressure Source Monitor Blood Pressure Position Semi-Fowlers Blood Pressure Location Right Arm Pulse Ox 98 Oxygen Delivery Method Room Air Room Air 06/18/25 21:56 06/19/25 04:47 06/19/25 04:52 Temperature 97.5 F L 97.5 F L Temperature Source Oral Temporal Pulse Rate 62 60 Pulse Strength Respiratory Rate 18 18 Respiratory Effort Normal Non-Labored Respiratory Depth Normal Respiratory Pattern Normal Blood Pressure 128/86 H 116/81 H Blood Pressure Mean 100 92 Blood Pressure Source Monitor Monitor Blood Pressure Position Semi-Fowlers Semi-Fowlers Blood Pressure Location Right Arm Right Forearm Pulse Ox 97 95 Oxygen Delivery Method Room Air Room Air Room Air 06/19/25 09:53 06/19/25 09:55 06/19/25 10:00 Temperature 98.9 F Temperature Source Temporal Pulse Rate 72 Pulse Strength Normal (2+) Respiratory Rate 16 Respiratory Effort Respiratory Depth Respiratory Pattern Blood Pressure 132/83 H Blood Pressure Mean 99 Blood Pressure Source Monitor Blood Pressure Position Semi-Fowlers Blood Pressure Location Right Arm Pulse Ox 96 Oxygen Delivery Method Room Air Room Air Weight Weight: 93.7 kg Body Mass Index (BMI) 28.0 EEG Results Procedure Details EEG Procedure Details: HAROLDO ALMEIDA is a 54 year old M with a past medical history of , who presents for evaluation of Electroencephalogram on DATE at TIME Lab / Micro Data 06/18/25 10:16 06/18/25 10:16 Labs: Laboratory Results - last 24 hr 06/18/25 10:14: POC Glucose 96 06/18/25 14:11: Troponin T Hi Sens 4Hr < 6 06/19/25 06:46: Triglycerides 280 H, Cholesterol 264 H, LDL Cholesterol, Calc 168, VLDL Cholesterol 56 H, HDL Cholesterol 43, Cholesterol/HDL Ratio 6.18 Imaging Radiology Impression Brain MRI 06/18/25 12:29 IMPRESSION: No acute intracranial abnormality. Small patchy foci of encephalomalacia in the right inferior cerebellar hemisphere. This is in the absence of significant chronic microvascular ischemic changes. Correlate with the history of cardiac dysrhythmia to evaluate for a potential prior thromboembolic source. Reading Location: [facility] Echocardiogram 06/18/25 12:29 Interpretation Summary The estimated ejection fraction is 60???65 %. Normal LV size. Normal left ventricular thickness. Normal diastology for age. Mild ascending aortic aneurysm measured at 3.7 cm. Bubble contrast study is negative for PFO/ASD. Ordering Physician: Cleveland Rehman Referring Physician: Omaira Goldberg Performed By: Jimmie Palmer RDCS Active Medications Active Medications Active Medications: Current Medications Generic Name Dose Route Start Last Admin Trade Name Freq PRN Reason Stop Dose Admin Acetaminophen 650 mg 06/18/25 12:41 Acetaminophen 325 Mg Tablet PO Q6H PRN PRN Pain 1-10 Or Fever>100.7 Aspirin 81 mg 06/19/25 08:00 06/19/25 09:51 Aspirin 81 Mg Tab.Chew PO 81 mg BREAKFAST UNIQUE Administration Sodium Chloride 250 mls @ 15 mls/hr 06/18/25 13:07 IV .[id number] PRN Saline Flush Sodium Chloride 250 mls @ 15 mls/hr 06/18/25 13:07 IV .[id number] PRN Additional IVPB Infusion Lisinopril 5 mg 06/19/25 10:00 06/19/25 09:51 Lisinopril 5 Mg Tablet PO 5 mg DAILY UNIQUE Administration Protocol Meclizine HCl 25 mg 06/18/25 12:41 Meclizine Hcl 25 Mg Tablet PO TID PRN PRN DIZZINESS Ondansetron HCl 4 mg 06/18/25 12:41 Ondansetron 4 Mg/2 Ml Vial IV Q8H PRN PRN NAUSEA/VOMITING Sodium Chloride 10 - 40 ml 06/18/25 13:07 0.9% Saline Lock 10 Ml Syringe IV UD PRN SALINE FLUSH NIHSS NIHSS Nursing Documentation NIHSS Nursing Documentation: NIHSS: Ischemic Stroke/TIA Start: 06/18/25 12:41 Text: For PCU Patients: NIH and Neuro Check every 4 Status: Complete hours, PRN and with change in RN caregiver. Freq: [id number] Protocol: Activity Type Activity Date Activity User E-sign Co-sign Detail Recorded Client Recorded Date Recorded By Document 06/18/25 16:34 JAYLIN [id number] 06/18/25 16:35 JAYLIN 06/18/25 16:34 NIH Stroke Scale [NIHSS] A score of 0 is normal or asymptomatic . Total possible score is 42. Inpatient: RN or Physician to activate a stroke alert for onset of new stroke symptoms or with NIHSS increase >/= 3 points. Following change in neurological status, NIHSS will be performed per physician order or more frequently PRN. -1a. Level of Consciousness 0 - Alert; keenly responsive -1b. LOC Questions 0 - Answers BOTH questions correctly -1c. LOC Commands 0 - Performs BOTH tasks correctly -2. Best Gaze 0 - Normal -3. Visual 0 - No visual loss -4. Facial Palsy 0 - Normal symmetrical movements -5a. Left Arm 0 - No drift; arm holds 90 ( or 45) degrees for full 10 seconds -5b. Right Arm 0 - No drift; arm holds 90 ( or 45) degrees for full 10 seconds -6a. Left Leg 0 - No drift; leg holds 30- degree position for full 5 seconds -6b. Right Leg 0 - No drift; leg holds 30- degree position for full 5 seconds -7. Limb Ataxia 0 - Absent -8. Sensory 0 - Normal; no sensory loss -9. Best Language 0 - No aphasia; normal -10. Dysarthria 0 - Normal -11. Extinction and Inattention 0 - No abnormality -Total 0 Query Text:A score of 0 is normal or asymptomatic. Total possible score is 42 . ED: Notify Physician for NIHSS increase by > / = 3 points. Inpatient: RN or Physician to activate a stroke alert for NIHSS increase of > / = 3 points. Coma Scale [Assess] -Eye Opening Spontaneous -Motor Obeys Commands -Verbal Oriented [Total] -Coma Scale Total 15
--- NOTE | 2025-06-19 15:12 | DS.PCM_ITS ---
Providers Date of Admission: 06/18/25 Primary Care Physician: Dr. Omaira Goldberg, DO Consultations 06/18/25 12:41 Consult: Tele-Neurology Routine Consulting Provider: [facility] Reason for Consult: Acute Ischemic Stroke/TIA EMERGENT Consult: No MD Notified: Yes Date Notified: 06/18/25 Time Notified: 13:07 Method of Notification: ED Physician Initiated Nursing Unit Staff Notify [facility] of Tele-Neurology Consult: Yes Reason For Visit: VERTIGO,FACIAL PARESTHESIS Diagnosis Discharge Diagnosis (1) Dizziness, nonspecific: Status: Resolved Code(s): R42 - Dizziness and giddiness (2) Right facial numbness: Status: Acute Code(s): R20.0 - Anesthesia of skin Plan Dizziness and right facial numbness: * Workup during this admission from the emergency room thus far has been unremarkable. * MRI brain showed no acute intracranial abnormality. Small patchy foci of encephalomalacia in the right inferior cerebellar hemisphere. * Echo shows an EF 60-65% * Discussed with neurology who felt his symptoms were likely BPPV and recommended as needed meclizine and vestibular rehab. The abnormal brain findings though not acute recommended to repeat an MRI of the brain with and without contrast in about 3 months. Chronic medical conditions: * Hypertension: Given symptoms began several days ago, can manage his blood pressure appropriately we will continue with his lisinopril. * Tobacco abuse: Patient chews tobacco. Nicotine patch if needed VTE prophylaxis: Not indicated given observation status at this time. CODE STATUS: Verified with the patient. He wishes to be full code at this time. Medications at Discharge Home Medications aspirin 81 mg tablet 81 mg PO DAILY 06/18/25 lisinopril 5 mg tablet 5 mg PO PRN 06/18/25 meclizine 25 mg tablet (Travel-Ease (meclizine)) 25 mg PO TID PRN PRN Dizziness #30 tabs 06/19/25 Weight / BMI Weight Weight: 93.7 kg Body Mass Index (BMI) 28.0 ABG / Lab / Microbiology Data 06/18/25 10:16 06/18/25 10:16 Laboratory: Laboratory Results - last 24 hr 06/18/25 10:14: POC Glucose 96 06/19/25 06:46: Triglycerides 280 H, Cholesterol 264 H, LDL Cholesterol, Calc 168, VLDL Cholesterol 56 H, HDL Cholesterol 43, Cholesterol/HDL Ratio 6.18 Radiography Diagnostic Testing: Radiology Impression Echocardiogram 06/18/25 12:29 Interpretation Summary The estimated ejection fraction is 60???65 %. Normal LV size. Normal left ventricular thickness. Normal diastology for age. Mild ascending aortic aneurysm measured at 3.7 cm. Bubble contrast study is negative for PFO/ASD. Ordering Physician: Cleveland Rehman Referring Physician: Omaira Goldberg Performed By: Jimmie Palmer RDCS D/C Instructions DC O2, CPAP, BIPAP Needs Home O2 Discharge instructions: No Meaningful Use Info Meaningful Use Meaningful Use Diagnoses (Choose all that apply): None applicable Discharge Plan Admission Admit Date/Time: 06/18/25 12:24 Primary Reason for Your Visit: Vertigo Attending Provider: Cleveland Rehman Primary Care Provider: Omaira Goldberg Consulting Providers: Socrates Valencia; Prabha Webster; Rosette Gan; Viktoria Arizmendi; Shanon Polo; Fercho Umaña; Magdalena Daugherty; Tyrel Pabon; Bharat Eden; Chris Red; Niyah Saleh; Mitzy Reid; Simon Lopez; Lara Borges; Nimesh Pascual; Christy Garrett; Christian Nunez; Shireen Michelle; Ron Wheat; Giovanna Majano; Skyler,Rodri Instructions Additional Instructions / Restrictions: Neurology concerned that some of her dizziness symptoms may be more attributable to a inner ear vertigo (known as benign paroxysmal positional vertigo). Uses tepid vertigo is self-limited meaning that will get better on its own but you can take medication called meclizine (also known as Antivert) to help with the dizziness. Outpatient therapy called vestibular therapy can help with this type of vertigo. The neurologist also recommend getting repeat MRI of your brain in about 3 months. Please follow-up with neurology in that time to coordinate that. If you do have recurrent symptoms or worsening symptoms, notify your physician or return to the emergency room. Discharge Orders/Prescriptions Prescriptions: New meclizine [Travel-Ease (meclizine)] 25 mg Tablet 25 mg PO TID PRN PRN (Reason: Dizziness) Qty: 30 0RF Continued lisinopril 5 mg tablet 5 mg PO PRN aspirin 81 mg tablet 81 mg PO DAILY Other Ambulatory Orders: Physical Therapy Evaluation (Routine) Location: None Selected Ordered By: Dr. Cleveland Rehman Referrals / Follow Up: [facility] [Provider Group] - Within 1 Month Omaira Goldberg DO [Primary Care Provider, Internal Medicine] - Within 2 Weeks Disposition Disposition (needs filled in before D/C Order can be placed): Home, Self Care Charges/Coding Visit Charges Inpatient E&M: 40519 Disch Hosp
[2025-06-19 15:13] VITALS: BP 127/80; PULSE 81; RESP 18; TEMP 36.6; O2SAT 96
[2025-06-19 15:17] VITALS: BP 127/80; PULSE 81; RESP 18; TEMP 36.6; O2SAT 96
--- NOTE | 2025-06-19 15:27 | PHA.DC.MR.R ---
Pharmacy [facility] has performed discharge medication reconciliation for this patient. The patient's discharge medication list was reviewed for discrepancies and discrepancies were resolved. Medications at Discharge Home Medications aspirin 81 mg tablet 81 mg PO DAILY 06/18/25 lisinopril 5 mg tablet 5 mg PO PRN 06/18/25 meclizine 25 mg tablet (Travel-Ease (meclizine)) 25 mg PO TID PRN PRN Dizziness #30 tabs 06/19/25
--- NOTE | 2025-06-19 15:42 | CASEMGMT ---
Social Work Per physician, pt is negative for accute stroke. PHQ9 not completed. ABEL Smith
--- NOTE | 2025-06-19 16:07 | CASEMGMT ---
RN CM note: Script for OP PT/vestibular received from Dr Rehman. Discharge order is in. RN CM to room. Discussed OP vestibular therapy and questions answered. Pt states he has been to [facility] in the past and wishes to go there again. He asked RN KELLI to schedule appt. Script faxed to [facility]. Called [facility] and appt scheduled for Wednesday07/02/25 @ 3 PM. Pt updated and this was added to pt's discharge plan. Pt voiced appreciation and denies having further discharge needs or concerns. Sarkis WOODN RN CM
== END 2025-06-19 16:35 | disposition home or self-care (01) ==
LOC: ED 12:08 → PCU 12:33
PROVIDERS: Emergency Provider Student in an Organized Health Care Education/Training Program; PCP Internal Medicine
DX: R42 Dizziness and giddiness (principal); K21.9 Gastro-esophageal reflux disease without esophagitis; E78.5 Hyperlipidemia, unspecified; Z79.82 Long term (current) use of aspirin; H81.10 Benign paroxysmal vertigo, unspecified ear; Z82.3 Family history of stroke; M48.02 Spinal stenosis, cervical region; R29.701 NIHSS score 1; Z82.49 Family history of ischemic heart disease and other diseases of the circulatory system; R20.0 Anesthesia of skin; Z79.899 Other long term (current) drug therapy; F17.220 Nicotine dependence, chewing tobacco, uncomplicated; I10 Essential (primary) hypertension
CPT/HCPCS: 36415; 70450; 70496; 70498; 70551; 80048; 80061; 82962; 84484; 85025; 85610; 85730; 93005; 93306; 94762; 97161; 97165; 97802; 99221; 99285; Q9967; A4216; G0378